=== PATIENT | male | born 1975 | race Two or more races ===

== ENCOUNTER → 2025-03-27 | Outpatient (CLI) | payer OTHER, SELFPAY ==
--- NOTE | 2025-03-27 10:15 | XR_ITS ---
EXAMINATION: PA lateral chest 2 views TECHNIQUE: Upright PA lateral chest 2 views Date and time: March 27, 2025, 10:25 a.m.,. INDICATIONS: Shortness of breath beginning 4 weeks ago. FINDINGS: Atelectasis versus pneumonia left base Normal heart size Right lung clear IMPRESSION: Atelectasis versus pneumonia left base, clinical correlation advised
== END | disposition home or self-care (01) ==
PROVIDERS: PCP Physician Assistant; Referring Provider Physician Assistant; Visit Provider Physician Assistant
DX: R91.8 Other nonspecific abnormal finding of lung field (principal)
CPT/HCPCS: 71046